=== PATIENT | female | born 1970 | race Caucasian/White ===

== ENCOUNTER 2022-07-03 15:28 | Observation (INO) | payer OTHER, SELFPAY ==
[2022-07-03] VITALS (16 sets, daily range): BP systolic 91–125; BP diastolic 37–78; PULSE 55–79; RESP 12–20; TEMP 36.6–37.3; O2SAT 92–100; BMI 25.4
--- NOTE | 2022-07-03 15:45 | DI.CT_ITS ---
Exam(s) CT HEAD CERVICAL SPINE WO EXAM: CT HEAD CERVICAL SPINE WO COMPARISON: No exams were available for comparison FINDINGS: CT examination of the cervical spine was performed without contrast administration. Please see accompanying chest CT report for findings in the upper thorax. There is a fracture transverse process of C7 right. No additional cervical spine fracture seen. Mul tiple right rib fractures including ribs 1 through 6 proximal left 1st rib fracture also noted.. Intervertebral disc spaces are well maintained. Tracheolaryngeal structures appear intact. No cervical mass or adenopathy. Noncontrast cranial CT was performed. Ventricular system is normal in appearance. No evidence of acute intracranial hemorrhage, mass effect, or midline shift. No calvarial fracture. The orbital and temporal bone structures appear intact. Visualized mastoid air cells and paranasal sinuses: There is mucoperiosteal thickening of maxillary a nd ethmoid sinuses consistent with chronic sinus disease. No evidence of fracture.. IMPRESSION: Right C7 transverse process fracture and multiple rib fractures, please also see chest CT report.. No evidence of acute intracranial injury. RADIATION DOSE DELIVERED: 1,717.63mGy.cm Total DLP 1,717.63mGy.cm Total DLP !Error CTDIvol DATA REPOSITORY: All CT scans at this facility are submitted to the National Radiology Data Registry (NRDR) Dose Index Registry (DIR) with the [employer] (ACR). RADIATION OPTIMIZATION: All CT scans at this facility use at least one of these dose optimization te chniques: automated exposure control; mA and/or kV adjustment per patient size (includes targeted exa ms where dose is matched to clinical indication); or iterative reconstruction.
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
[2022-07-03] MEDS: HYDROmorphone 2 MG/ML VIAL 1 MG IVP (15:59)
[2022-07-03] MEDS: Ondansetron 4 MG/2 ML VIAL IVP (16:00)
--- NOTE | 2022-07-03 16:13 | DI.CT_ITS ---
Exam(s) CT CHEST/ABD/PEL W CT THORACIC LUMBAR SPINE REC EXAM: CT CHEST/ABD/PEL W TECHNIQUE: CT examination of the chest, abdomen, and pelvis was performed with bolus infusion of 100 cc of Omnipaque 350. Additional reconstructions of thoracic and lumbar spine were also obtained. COMPARISON: No exams were available for comparison FINDINGS: There is no evidence of a thoracic vascular injury. There are multiple right rib fractures posteriorly, involving ribs 1 through 6. There is a proximal left 1st rib fracture. The lungs are predominantly clear with minimal changes of scarring. A couple of questionable areas of ground-glass opacity seen in the superior segment of right upper lobe could represent tiny pulmonary contusions.there are small bilateral pneumothoraces. No pleural effusion s een.. No mediastinal hematoma. No adenopathy in the chest. Tracheobronchial tree appears intact. The liver, spleen, and pancreas appear normal. Gallbladder and bile ducts are normal. Adrenals and kidneys are unremarkable. No evidence of urinary tract injury or obstruction. No abdominal or pelvic vascular injury seen. No abdominal or pelvic adenopathy. No significant abdomi nal wall hernia or hematoma. No evidence of bowel injury. Apart from the aforementioned rib fractures, there is no additional fracture identified in the region surveyed. IMPRESSION: Multiple right rib fractures and solitary left 1st rib fracture. Small bilateral pneumothorax. Question minimal right-sided pulmonary contusion. No evidence of acute intra-abdominal injury. RADIATION DOSE DELIVERED: 1141.78 mGy.cm Total DLP 1141.78 mGy.cm Total DLP !Error CTDIvol DATA REPOSITORY: All CT scans at this facility are submitted to the National Radiology Data Registry (NRDR) Dose Index Registry (DIR) with the [employer] (ACR). RADIATION OPTIMIZATION: All CT scans at this facility use at least one of these dose optimization te chniques: automated exposure control; mA and/or kV adjustment per patient size (includes targeted exa ms where dose is matched to clinical indication); or iterative reconstruction.
[2022-07-03] MEDS: Omnipaque 350 MG/ML 100 ML BTL IV (16:19)
--- NOTE | 2022-07-03 16:51 | NUR.NOTE ---
c collar removed by provider. JAMES
[2022-07-03 16:54] LABS: Abs Immature Grans 0.06 10^3/uL (0.0-0.06); Absolute Basophil Count 0.04 10^3/uL (0.0-0.2); Absolute Eosinophil Count 0.04 10^3/uL (0.0-0.7); Absolute Lymphocyte Count 0.59 10^3/uL (1.2-3.4); Absolute Monocyte Count 0.91 10^3/uL (0.1-0.8); Basophils % 0.3; Eosinophils % 0.3; HCT 33.6 % (36.0-46.0); HGB 11.9 g/dL (11.2-15.7); Immature Grans % 0.5; Lymphocytes % 4.9; MCH 31.6 pg (27.0-33.0); MCHC 35.4 % (32.0-36.0); MCV 89 fL (80-95); MPV 9.5 fL (8.0-11.0); Monocytes % 7.5; Neutrophils % 86.5; Platelet Count 193 10^3/uL (130-400); RBC 3.77 10^6/uL (3.93-5.22); RDW-SD 38.6 fL; WBC 12.14 10^3/uL (4.4-10.8)
[2022-07-03 17:16] LABS: ALT 175 U/L (14-59); AST 146 U/L (15-37); Albumin 3.6 g/dL (3.4-5.0); Alkaline Phosphatase 87 U/L (46-116); Anion Gap 9.4 mmol/L (3-11); BUN 15 mg/dL (7-18); Bilirubin, Total 0.6 mg/dL (0.2-1.0); CO2 25.6 mmol/L (21.0-32.0); CREATININE 0.9 mg/dL (0.55-1.02); Calcium 7.9 mg/dL (8.5-10.1); Chloride 99 mmol/L (98-107); Glucose 231 mg/dL (74-106); Lipase 124 U/L (73-393); Magnesium 1.3 mg/dL (1.8-2.4); Potassium 3.5 mmol/L (3.5-5.1); Sodium 134 mmol/L (136-145); Total Protein 6.5 g/dL (6.4-8.2)
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
[2022-07-03 17:35] LABS: Source Nasal/Nares
[2022-07-03] MEDS: HYDROmorphone 2 MG/ML VIAL 0.5 MG IVP (17:52)
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
[2022-07-03 18:16] LABS: COVID-19 PCR Negative (Negative)
--- NOTE | 2022-07-03 18:45 | W.ANESNERVE ---
Nerve Block Single Injection Procedure Date and Time Date Performed: 07/03/22 Procedure Start: 18:14 Location Where Procedure Performed Procedure Location: Emergency Department Reason Performed: Acute Pain Management Pain Diagnosis: Chest Pain Requesting Provider: Yasmeen Zazueta Timeout Performed Timeout Performed: Yes Monitoring Used ECG, Blood Pressure and SpO2 Sterility Sterility: Hand Hygiene, Surgical Cap, Surgical Mask, Sterile Gloves and Chlorhexidine Sedation Given During Procedure Sedation Given (Indicate Dose Given): No Sedation given Patient Mental Status Patient Mental Status: Awake Nerve Block 1st Nerve Block: Laterality: Right Block Type: Erector Spinae (Upper) Needle / Catheter Used: 100mm SonoPlex II Local Anesthetic Bolus (Indicate Dose Given): Lidocaine used for local infiltration of skin, Injected in 3-5ml increments after negative blood aspiration and Bupivacaine 0.25% Dose:: 30 ml Additives (Indicate Dose Given): Precedex Dose:: 65 mcg Ultrasound: Sterile probe cover and gel used Ultrasound Image Saved?: Yes Nerve Stimulator: Not Used Paresthesia: None Procedure Tolerated: No Complications and Patient tolerated well Procedure Outcome: Successful Performed By: Yuko Escudero Supervised By: Lauri Hawley
[2022-07-03] MEDS: Acetaminophen 325 MG TAB 650 MG PO (20:29)
[2022-07-03] MEDS: Normal Saline Flush 10 ML SYR IVP (20:33)
[2022-07-03] MEDS: Ketorolac 15 MG/ML VIAL IVP (20:34)
[2022-07-03 21:49] LABS: Bilirubin Negative (Negative); Blood Negative (Negative); Clarity Clear (Clear); Glucose Negative (Negative); Ketones 40 mg/dL (Negative); Leukocyte Esterase Negative (Negative); Nitrite Negative (Negative); Specific Gravity 1.015 (1.005-1.025); Urobilinogen 0.2 EU/dL (Up TO 0.2)
[2022-07-04] VITALS (12 sets, daily range): BP systolic 98–125; BP diastolic 58–76; PULSE 38–73; RESP 14–20; TEMP 36.4–36.9; O2SAT 96–100
[2022-07-04] MEDS: LORazepam 1 MG TAB 2 MG PO (00:19)
[2022-07-04] MEDS: Normal Saline Flush 10 ML SYR IVP ×6 (00:20→23:54)
[2022-07-04] MEDS: Ketorolac 15 MG/ML VIAL IVP ×5 (00:20→23:54)
--- NOTE | 2022-07-04 03:00 | RT.EKG_ITS ---
APPROVED REPORT Exam: Resting ECG Reason for Exam: decrease responsiveness while on the commode Patient Location: I HR:46 bpm ECG Measurements Heart Rate 46 AXIS MS 172 P 67 QRSd 89 QRS 78 QT 506 T 76 QTc 443 Conclusion Sinus bradycardia...rate< 50 ST elev, probable normal early repol pattern...ST elevation, age<55
[2022-07-04] MEDS: Ondansetron 4 MG/2 ML VIAL IVP ×2 (03:14→08:21)
--- NOTE | 2022-07-04 03:46 | NUR.NOTE ---
Pt called out to use commode around 0300. Urinated, then reported feeling lightheaded and like she was going to pass out. She suddenly slumped over and HR read 33 on continuous pulse oximeter. This RN called for assistance. Pt unresponsive, lifted back to bed. Blood glucose was found to be 157, VS stable with HR returning to baseline 50. Pt gradually regained consciousness and was oriented x4. EKG obtained, read sinus bradycardia. Pt reports pain but feeling better to be lying down. 1.5L NS bolus & IV ondansetron given for nausea.
[2022-07-04] MEDS: oxyCODONE 5 MG TAB PO ×3 (07:48→18:09)
[2022-07-04] MEDS: Docusate Sodium 100 MG CAP PO ×2 (07:49→13:42)
--- NOTE | 2022-07-04 08:08 | DI.RAD_ITS ---
Exam(s) XR CHEST 2V PA LATERAL EXAM: XR CHEST 2V PA LATERAL CLINICAL HISTORY: bilateral Ptx of CT scan TECHNIQUE: 2D digital imaging was performed. COMPARISON: CT CT CHEST/ABD/PEL W from 07/03/[address] THORACIC LUMBAR SPINE REC from 07/03/2022 FINDINGS: MEDIASTINUM: Normal. HEART: Normal. PULMONARY VASCULATURE: Normal. LUNGS: Clear. PLEURAL SPACE: No pleural effusion. Stable tiny bilateral apical pneumothoraces. BONE:Prior CT showed rib fractures which are not visible on plain film. IMPRESSION: Stable tiny bilateral apical pneumothoraces. DATA REPOSITORY: RADIATION DOSE DELIVERED:
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
[2022-07-04] MEDS: Acetaminophen 325 MG TAB 650 MG PO (11:15)
[2022-07-04] MEDS: Lidocaine 5% Patch 1 PATCH TP (16:05)
[2022-07-04] MEDS: Polyethylene Glycol 3350 17 GM PACKET PO (16:05)
[2022-07-04] MEDS: diazePAM 2 MG TAB PO ×2 (16:06→20:28)
[2022-07-04] MEDS: Acetaminophen 500 MG TAB 1000 MG PO ×2 (16:06→21:53)
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
[2022-07-04] MEDS: Gabapentin 100 MG CAP PO (20:28)
[2022-07-04] MEDS: oxyCODONE 5 MG TAB 10 MG PO (21:52)
[2022-07-05 03:15] VITALS: BP 90/51; PULSE 52; RESP 20; TEMP 36.6; O2SAT 96
[2022-07-05] MEDS: Acetaminophen 500 MG TAB 1000 MG PO ×2 (04:15→07:47)
[2022-07-05] MEDS: Ketorolac 15 MG/ML VIAL IVP (06:05)
[2022-07-05 07:00] VITALS: PULSE 60
--- NOTE | 2022-07-05 07:31 | W.ANESNERVE ---
Nerve Block Single Injection Procedure Date and Time Date Performed: 07/05/22 Procedure Start: 07:10 Location Where Procedure Performed Procedure Location: Med/Surg Reason Performed: Acute Pain Management (difficulty taking deep breaths, chest pain, difficulty with IS, difficulty with ambulation. ) Pain Diagnosis: Chest Pain, Rib Pain and Back Pain Requesting Provider: Tracy Orozco Timeout Performed Timeout Performed: Yes Monitoring Used ECG, Blood Pressure and SpO2 Sterility Sterility: Hand Hygiene, Surgical Cap, Surgical Mask and Chlorhexidine Sedation Given During Procedure Sedation Given (Indicate Dose Given): No Sedation given Patient Mental Status Patient Mental Status: Awake Nerve Block 1st Nerve Block: Laterality: Right Block Type: Erector Spinae (Upper) Needle / Catheter Used: 100mm SonoPlex II Local Anesthetic Bolus (Indicate Dose Given): Lidocaine used for local infiltration of skin and Bupivacaine 0.375% Dose:: 30 mL Additives (Indicate Dose Given): None Ultrasound: Sterile probe cover and gel used Ultrasound Image Saved?: Yes Nerve Stimulator: Not Used Paresthesia: None Procedure Tolerated: No Complications Procedure Outcome: Successful Performed By: Shai Khoury
[2022-07-05 07:37] VITALS: BP 109/67; PULSE 47; RESP 16; TEMP 36.7; O2SAT 97
[2022-07-05] MEDS: Polyethylene Glycol 3350 17 GM PACKET PO (07:42)
[2022-07-05] MEDS: Normal Saline Flush 10 ML SYR IVP (07:43)
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
--- NOTE | 2022-07-05 14:01 | PT.INNT ---
PT Notes Visit Reasons: TRAUMA Patient was discharged prior to PT consult
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
== END 2022-07-05 10:43 | disposition home or self-care (01) ==
LOC: ER 18:18 → MS 19:20
PROVIDERS: Admitting Provider Surgery; Emergency Provider Registered Nurse Emergency; Visit Provider Surgery
DX: S22.41XA Multiple fractures of ribs, right side, initial encounter for closed fracture (principal); S12.690A Other displaced fracture of seventh cervical vertebra, initial encounter for closed fracture; S27.0XXA Traumatic pneumothorax, initial encounter; G89.11 Acute pain due to trauma; R07.81 Pleurodynia; E10.9 Type 1 diabetes mellitus without complications; V19.88XA Pedal cyclist (driver) (passenger) injured in other specified transport accidents, initial encounter; Z20.822 Contact with and (suspected) exposure to COVID-19; Y93.55 Activity, bike riding; Z79.899 Other long term (current) drug therapy; S40.211A Abrasion of right shoulder, initial encounter; S10.81XA Abrasion of other specified part of neck, initial encounter; S80.811A Abrasion, right lower leg, initial encounter; R26.2 Difficulty in walking, not elsewhere classified
CPT/HCPCS: 36415; 36416; 74177; 76942; 80053; 82962; 83690; 87635; 96361; 96374; 96375; 96376; 99285; 70450; 71046; 71260; 72125; 73030; 81003; 83735; 85025; 94667; G0378; J1885; J2405; J3490